=== PATIENT | female | born 1970 | race Caucasian/White ===

== ENCOUNTER → 2019-07-26 | Outpatient (CLI) | payer OTHER | LOC: LB.CLINIC 08:15 | PROVIDERS: ATTEND Family Medicine | DX: I10 Essential (primary) hypertension (principal) | CPT/HCPCS: 36415; 80048 ==

== ENCOUNTER → 2019-07-29 | Outpatient (CLI) | payer OTHER ==
[2019-07-29 08:46] LABS: HEMOGLOBIN A1C 6.7 % (< 5.7)
== END ==
LOC: LB.CLINIC 08:20
PROVIDERS: ATTEND Family Medicine
DX: R73.01 Impaired fasting glucose (principal)
CPT/HCPCS: 36415; 83036

== ENCOUNTER 2020-10-24 13:55 | Observation (INO) | payer BC ==
--- NOTE | 2020-10-24 13:49 | CR ---
Date of Service: 10/24/20 Clinical Data: Essential (primary) hypertension,Chest pain, unspecified PA AND LATERAL CHEST: No priors. The heart size is normal. The lungs are clear. No pneumothorax. No pleural effusions. No evidence of acute intrathoracic disease. [id number] [facility]
[2020-10-24] MEDS ORDERED: Sodium Chloride 0.9% 10 ML Syringe FLUSH PRN (14:28)
[2020-10-24] MEDS ORDERED: traZODone 50 MG Tab PO PRN (14:41)
[2020-10-24] MEDS ORDERED: Hydrochlorothiazide 12.5 MG Cap PO SCH (14:45)
[2020-10-24] MEDS ORDERED: rOPINIRole 0.25 MG Tab PO SCH (14:45)
[2020-10-24 15:02] VITALS: PULSE 95
--- NOTE | 2020-10-24 16:09 | CT ---
DATE OF SERVICE: 10/24/2020 CLINICAL DATA: Rule out PE, Chest pain, tachycardia Enhanced chest CT: The multi slice acquisition through the chest with IV contrast was performed. No priors. No evidence of PE. No pneumothorax. No pleural effusions. No aortic aneurysm or dissection. There are mild atelectatic changes in the dependent portions of both lungs. The lungs are otherwise clear. The heart size is normal. No significant pericardial effusion. No hilar or mediastinal adenopathy. There is a small hiatal hernia. The is mild degenerative disc disease at multiple levels in the thoracic spine. The patient is status post cholecystectomy. Impression: No acute abnormalities. MTDD
--- NOTE | 2020-10-24 16:49 | PCM.DCSUM1 ---
Discharge Summary - Hospital Course Free Text/Narrative:: 50 year old female was admitted to Observation by clinic [facility] for an additional troponin and a chest CT. Patient was also started on HCTZ today to gain better control for HTN. Denies any fever, cough, abdominal pain, N/V/D. PE chest CT performed, negative results. 2nd troponin was drawn at 1630, if results remain negative, patient will DC home. Patient is agreeable to the plan. Patient verbalized understanding of DC instructions, all questions were answered prior to DC. - Discharge Data Discharge Date: 10/24/20 Discharge Disposition: Home, Self-Care 01 Condition: Good - Referral to Home Health Primary Care Physician: PCP None - Patient Instructions Diet: Usual Diet as Tolerated - Discharge Plan *PRESCRIPTION DRUG MONITORING PROGRAM REVIEWED*: Not Applicable *COPY OF PRESCRIPTION DRUG MONITORING REPORT IN PATIENT CESILIA: Not Applicable Home Medications: Home Meds Levothyroxine 150 mcg PO ACBREAKFAST 10/24/20 [History] Valsartan 80 mg PO DAILY 10/24/20 [History] hydroCHLOROthiazide [Hydrochlorothiazide] 12.5 mg PO DAILY 10/24/20 [History] rOPINIRole [Requip] 1 mg PO BEDTIME 10/24/20 [History] rOPINIRole [Requip] 1 tab PO BID 10/24/20 [History] traZODone HCl [Trazodone HCl] 0.5 tab PO BEDTIME PRN 10/24/20 [History] - Discharge Summary/Plan Comment DC Time >30 min.: No Discharge Summary/Plan Comment: Follow up with [facility] if the pain continues. You may take OTC medications to help relieve the discomfort. Please return to ED if you have any increased or new concerning symptoms. - Patient Data Vitals - Most Recent: Last Vital Signs Temp 97.9 F 10/24/20 15:00 Pulse 95 10/24/20 15:00 Resp 18 10/24/20 15:00 BP 189/116 H 10/24/20 15:00 Pulse Ox 100 10/24/20 15:00 Weight - Most Recent: 157 lb Lab Results - Last 24 hrs: Laboratory Results - last 24 hr 10/24/20 Range/Units 15:06 SARS-CoV-2 RNA ([place]) Negative (NEGATIVE) Med Orders - Current: Current Medications Hydrochlorothiazide (Hydrochlorothiazide) 12.5 mg PO DAILY [facility] Last Admin: 10/24/20 16:08 Dose: 12.5 mg Documented by: Levothyroxine Sodium (Levothyroxine) 150 mcg PO ACBREAKFAST [facility] Ropinirole HCl (Requip) 0.25 mg PO BID@0800,1400 [facility] Last Admin: 10/24/20 16:08 Dose: 0.25 mg Documented by: Ropinirole HCl (Requip) 1 mg PO BEDTIME [facility] Sodium Chloride (Saline Flush) 10 ml FLUSH ASDIRECTED PRN PRN Reason: Keep Vein Open Trazodone HCl (Trazodone) 25 mg PO BEDTIME PRN PRN Reason: Sleep Valsartan (Diovan) 80 mg PO DAILY [facility]
[2020-10-24 16:53] VITALS: BP 178/106
[2020-10-24] MEDS ORDERED: rOPINIRole 1 MG Tab PO SCH (20:00)
[2020-10-25] MEDS ORDERED: Levothyroxine 150 MCG Tab PO SCH (07:00)
== END 2020-10-24 17:45 | disposition home or self-care (01) ==
LOC: LB.MS 13:55
PROVIDERS: ADMIT Registered Nurse; ATTEND Nurse Practitioner
DX: I10 Essential (primary) hypertension (principal); R07.89 Other chest pain; R22.42 Localized swelling, mass and lump, left lower limb; R22.32 Localized swelling, mass and lump, left upper limb; R06.83 Snoring; B94.8 Sequelae of other specified infectious and parasitic diseases; Z20.822 Contact with and (suspected) exposure to COVID-19; R94.31 Abnormal electrocardiogram [ECG] [EKG]; K44.9 Diaphragmatic hernia without obstruction or gangrene; M51.34 Other intervertebral disc degeneration, thoracic region; J98.11 Atelectasis; E03.9 Hypothyroidism, unspecified; Z88.0 Allergy status to penicillin; Z88.2 Allergy status to sulfonamides; Z86.16 Personal history of COVID-19; Z79.890 Hormone replacement therapy; Z79.899 Other long term (current) drug therapy; Z98.890 Other specified postprocedural states
CPT/HCPCS: 36415; 71046; 71260; 84484; A9270-GY; G0378; G0379; U0002

== ENCOUNTER 2021-02-28 09:40 | Day surgery (SDC) | payer BC ==
[~2021-02-28 09:40] MED LIST: Metoclopramide 10 MG/2 ML SDV IV PRN; Sodium Chloride 0.9% 1,000 ML IV SCH
[2021-02-28] MEDS: Sodium Chloride 0.9% 1,000 ML IV SCH (10:04)
[2021-02-28] MEDS ORDERED: Metoclopramide 10 MG/2 ML SDV IVPUSH SCH (10:15)
[2021-02-28] MEDS ORDERED: Midazolam 1 MG/ML 2 ML SDV ONE (11:25)
[2021-02-28] MEDS ORDERED: Propofol 200 MG/20 ML SDV ONE (11:25)
--- NOTE | 2021-02-28 18:54 | OR ---
DATE OF OPERATION: 02/28/2021 SURGEON: Flynn Soto MD PREOPERATIVE DIAGNOSIS: Screening colonoscopy. POSTOPERATIVE DIAGNOSIS: Screening colonoscopy. PROCEDURE: Colonoscopy. ANESTHESIA: MAC. ESTIMATED BLOOD LOSS: None. COMPLICATIONS: None. INDICATION FOR THE PROCEDURE: The patient is a 50-year-old female who is here today for colonoscopy. She has had previous colonoscopy 7 years ago for irritable bowel syndrome. Denies any polyps at that time. Denies any change in bowel habits since then. Did have an episode of diverticulitis several years ago as well, but none since. Grandfather did have colon cancer. Parents are otherwise free from colon cancer. DESCRIPTION OF PROCEDURE: Informed consent was obtained from the patient. The patient was taken to the operating room, placed on the table in the left lateral decubitus position. Monitored anesthesia care was administered. Digital rectal exam performed was normal. Colonoscope then advanced through the anus, directed toward the cecum. Cecum was reached and identified by appendiceal orifice and ileocecal valve. Colonoscope was then slowly withdrawn. She did have moderate diverticulosis in the sigmoid colon and distal descending colon. Remainder of the colon was otherwise unremarkable. No polyps, no masses, no areas of ischemia or inflammation identified. Rectum was also otherwise unremarkable. Colonoscope then withdrawn. FINDINGS: Sigmoid and descending diverticulosis. RECOMMENDATIONS: Would recommend avoiding constipation. Plenty of water and high-fiber diet. I would also recommend repeat screening colonoscopy in 10 years. SUZI /[id number]
== END 2021-02-28 13:10 | disposition home or self-care (01) ==
LOC: LB.SDS 09:40
PROVIDERS: ATTEND Surgery
DX: Z12.11 Encounter for screening for malignant neoplasm of colon (principal); I10 Essential (primary) hypertension; Z88.0 Allergy status to penicillin; Z80.0 Family history of malignant neoplasm of digestive organs; Z88.2 Allergy status to sulfonamides
CPT/HCPCS: J2250; J2704; J7030